=== PATIENT | male | born 1965 | race African-American/Black ===

== ENCOUNTER 2020-07-09 18:03 | Emergency (ER) | payer BC ==
[~2020-07-09] VITALS: Ht 180.3 cm; Wt 92.5 kg
[2020-07-09 18:26] LABS: ABSOLUTE NEUTROPHILS 3.5 thou/uL (1.4-8.2); EOSINOPHILS 6.7 % (0.0-3.0); HEMATOCRIT 40.8 % (42.0-52.0); HEMOGLOBIN 13.6 gm/dL (14.0-18.0); LYMPHOCYTES 32.9 % (24.0-44.0); MCHC 33.4 g/dL (28.0-37.0); MCV 92.8 fL (80.0-100.0); MONOCYTES 8.3 % (1.0-8.0); PLATELET COUNT 207 thou/uL (150-400); POLYS 51.1 % (36.0-66.0); RDW 12.9 % (10.5-14.5); WBC 6.9 thou/uL (4.0-11.0)
[2020-07-09 18:30] LABS: CALCIUM 8.2 mg/dL (8.5-10.1); CREATININE 1.3 mg/dL (0.7-1.3); POTASSIUM 3.7 mmol/L (3.5-5.1)
[2020-07-09 18:41] LABS: ALBUMIN 3.1 g/dL (3.4-5.0); TOTAL BILIRUBIN 0.4 mg/dL (0.2-1.0); TOTAL PROTEIN 7.7 g/dL (6.4-8.2)
[2020-07-09] MEDS ORDERED: NORCO 10-325 T1 EACH PO ×2 (19:48→19:50)
[2020-07-09] MEDS ORDERED: IBUPROFEN 600600 M1 PO ×2 (19:48→19:50)
[2020-07-09 20:46] VITALS: BP 126/69
== END 2020-07-09 20:45 | disposition home or self-care (01) ==
LOC: EDBD 18:03 → ER 18:03
PROVIDERS: Emergency Medicine
DX: S06.0X0A Concussion without loss of consciousness, initial encounter (principal); S39.012A Strain of muscle, fascia and tendon of lower back, initial encounter; S16.1XXA Strain of muscle, fascia and tendon at neck level, initial encounter; F17.210 Nicotine dependence, cigarettes, uncomplicated; V43.52XA Car driver injured in collision with other type car in traffic accident, initial encounter; Y93.89 Activity, other specified; Y92.89 Other specified places as the place of occurrence of the external cause; Y99.8 Other external cause status